=== PATIENT | male | born 1980 | race Caucasian/White ===

== ENCOUNTER 2017-06-16 22:10 | Emergency (ER) | payer SELFPAY ==
[~2017-06-16] VITALS: Ht 170.2 cm; Wt 72.0 kg
[2017-06-17] MEDS ORDERED: IBUPROFEN 800MG TABLET PO ONE (01:45)
[2017-06-17] MEDS ORDERED: TETANUS, DIPHTHERIA, PERTUSSIS VAC/PF 0.5ML (>7YR OLD) IM ONE (02:15)
[2017-06-17 05:05] VITALS: BP 105/71
== END 2017-06-17 05:11 | disposition home or self-care (01) ==
LOC: ER 22:14
DX: S92.002A Unspecified fracture of left calcaneus, initial encounter for closed fracture (principal); S91.312A Laceration without foreign body, left foot, initial encounter; S91.311A Laceration without foreign body, right foot, initial encounter; S90.31XA Contusion of right foot, initial encounter; F17.200 Nicotine dependence, unspecified, uncomplicated; W17.89XA Other fall from one level to another, initial encounter; Y93.89 Activity, other specified; Y92.481 Parking lot as the place of occurrence of the external cause
CPT/HCPCS: 12001; 73610; 73630; 90471; 90715; 99284; A4217; X7700; Z7610; A4315